=== PATIENT | female | born 1990 | race American Indian/Alaskan Native ===

== ENCOUNTER 2017-01-08 21:37 | Emergency (ER) | payer MEDICAID ==
--- NOTE | 2017-01-09 01:46 | Emergency Department Report ---
HPI - General Chief Complaint: Skin Rash Time Seen by Provider: 01/09/17 01:30 - HPI HPI: 26-year-old -[place] female comes in with complaint of a rash all over her body for 10-15 years. Patient reports that the rash is itchy. Patient is a poor historian ED Past Medical Hx - Past Medical History Previous Medical History?: No - Surgical History Past Surgical History?: No - Social History Smoking Status: Never Smoker Substance Use Type: None ED Review of Systems ROS: Stated complaint: RASH Other details as noted in HPI Constitutional: denies: chills, fever Eyes: denies: eye pain, eye discharge, vision change ENT: denies: ear pain, throat pain Respiratory: denies: cough, shortness of breath, wheezing Cardiovascular: denies: chest pain, palpitations Endocrine: no symptoms reported Gastrointestinal: denies: abdominal pain, nausea, diarrhea Genitourinary: denies: urgency, dysuria, discharge Musculoskeletal: denies: back pain, joint swelling, arthralgia Skin: rash, pruritus Neurological: denies: headache, weakness, paresthesias Psychiatric: denies: anxiety, depression Hematological/Lymphatic: denies: easy bleeding, easy bruising Physical Exam - Physical Exam Vital Signs: Vital Signs 01/08/17 22:30 Temperature 98.3 F Pulse Rate 86 Respiratory 14 Rate Blood Pressure 118/68 [Right] O2 Sat by Pulse 99 Oximetry Physical Exam: GENERAL: Alert and oriented x3, no apparent distress, Normal Gait, atraumatic. HEAD: Head is normocephalic and a-traumatic. EYES: Extra ocular muscles are intact. Pupils are equal, round, and reactive to light and accommodation. EXTREMITIES/MUSCULOSKELETAL: No cyanosis, clubbing, rash, lesions or edema. Full ROM bilaterally. UE/LE Pulses 2+ bilaterally. LE and UE 5+ strength bilaterally NEUROLOGIC: No focal Deficit, Cranial nerves II through XII are grossly intact. No loss of sensation, No facial droop, . PSYCHIATRIC: Mood is congruent with affect, flat affect SKIN: Warm and dry, No lesions, No ulceration or induration present hyperpigmented rash located on forehead, she has large pores somewhat craters openings on her face. Scaly dry rash on body ED Course Vital Signs 01/08/17 22:30 Temperature 98.3 F Pulse Rate 86 Respiratory 14 Rate Blood Pressure 118/68 [Right] O2 Sat by Pulse 99 Oximetry ED Medical Decision Making - Medical Decision Making Discussed with patient this is a chronic issue she's had for greater than 10 years. That this is most likely a referral for hydrogenation operator. Dressed with patient that her vitals are stable she is not actively having an acute rash. Discussed the patient we will refer her to a hydrogenation operator patient verbalized understanding Critical care attestation.: If time is entered above; I have spent that time in minutes in the direct care of this critically ill patient, excluding procedure time. ED Disposition Clinical Impression: Rash of entire body Disposition: DISCHARGED TO HOME OR SELFCARE Is pt being admited?: No Does the pt Need Aspirin: No Condition: Stable Additional Instructions: Very important for you to follow-up with a hydrogenation operator. Advised to to call customer service number on the back of your insurance car to find out who accepts her insurance as a hydrogenation operator. Give him a call to schedule an appointment for your chronic rash. Referrals: PRIMARY CARE, [Primary Care Provider] - 3-5 Days [facility] [Provider Group] - 3-5 Days
[2017-01-09 02:22] VITALS: BP 119/74
== END 2017-01-09 02:21 | disposition home or self-care (01) ==
LOC: ED 21:37
DX: R21 Rash and other nonspecific skin eruption (principal)
CPT/HCPCS: 99282

== ENCOUNTER 2017-01-16 15:25 | Emergency (ER) | payer MEDICAID ==
--- NOTE | 2017-01-16 20:47 | Emergency Department Report ---
Entered by RASHARD JACOBSEN, acting as scribe for ERICH DODD PA. - General Chief complaint: Skin/Abscess/Foreign Body Stated complaint: RASH/BOIL ON BACK Source: patient Mode of arrival: Ambulatory Limitations: No Limitations - History of Present Illness Initial comments: 26 y/o female presents c/o area of swelling that was drained 10 yrs ago. Pt notes that "knot" has not gotten any larger, however pt's mother notes it is getting larger. Secondary complaint includes rash that began 5-6 months ago diffusely. Pt denies itching, fever, chills, chest pain, SOB, fever, abd pain, N /V, numbness, weakness, SALES. Pt notes using OTC cream for the Sx with no relief. Pt states Hx of acne, request dermatology referral. No additional Sx MD complaint: abscess/boil -: month(s) (5-6 rash onset), year(s) (10 years, swelling right lower back drained) Location: back (right lower) Severity: mild Quality: constant Consistency: constant Improves with: none Worsens with: none Context: other (drained 4-5 years ago) Associated symptoms: other (rash on her body, denies itching) Treatments Prior to Arrival: OTC topical medication - Related Data Previous Rx's Medication Instructions Recorded Last Taken Type Salicylic Acid/Ceramide Cmb #1 1 applic TP BID #1 [email or web address] 01/16/17 Unknown Rx [Salicylic Acid 6% Cream Kit] Allergies Allergy/AdvReac Type Severity Reaction Status Date / Time No Known Allergies Allergy Verified 01/08/17 22:51 Abscess Boil HPI - HPI Chief Complaint: Skin/Abscess/Foreign Body Stated Complaint: RASH/BOIL ON BACK Home Medications: Previous Rx's Medication Instructions Recorded Last Taken Type Salicylic Acid/Ceramide Cmb #1 1 applic TP BID #1 [email or web address] 01/16/17 Unknown Rx [Salicylic Acid 6% Cream Kit] Allergies/Adverse Reactions: Allergies Allergy/AdvReac Type Severity Reaction Status Date / Time No Known Allergies Allergy Verified 01/08/17 22:51 ED Review of Systems Comment: All other systems reviewed and negative Constitutional: denies: chills, fever Respiratory: denies: cough, shortness of breath Cardiovascular: denies: chest pain Gastrointestinal: denies: abdominal pain, nausea, vomiting Musculoskeletal: other (right lower back swelling) Skin: rash (diffusely), other (denies itching) Neurological: denies: headache, weakness, numbness ED Past Medical Hx - Past Medical History Previous Medical History?: No - Surgical History Past Surgical History?: No - Social History Smoking Status: Never Smoker Substance Use Type: None - Medications Home Medications: Home Medications Medication Instructions Recorded Confirmed Last Taken Type Salicylic Acid/Ceramide Cmb #1 1 applic TP BID #1 [email or web address] 01/16/17 Unknown Rx [Salicylic Acid 6% Cream Kit] ED Physical Exam - General Limitations: No Limitations - Other Other exam information: GENERAL: Patient is alert and oriented x 3. No apparent distress, normal gait, atraumatic. HEAD: Head is normocephalic and atraumatic. EYES: Extraocular movements are intact. EARS: Symmetrical, atraumatic, non tender. NOSE: Nose symmetrical, nontender. Nares appeared normal. MOUTH:Mouth is well hydrated and without lesions. NECK: Supple. Non edematous, no carotid bruits. No lymphadenopathy or thyromegaly. LUNGS: Symmetrical with respiration. No wheezing, rales or crackles, CTAB. HEART: Regular rate and rhythm with normal S1/S2 present. No murmurs, rubs, or gallops. ABDOMEN: Soft, nondistended. Nontender to palpation on all quadrants. No organomegaly was noted. Positive bowel sounds. No CVA tenderness. EXTREMITIES/MUSCULOSKELETAL: No cyanosis, clubbing, rash, lesions or edema. Full ROM bilaterally. UE/LE Pulses 2+ bilaterally. LE and UE 5+ strength bilaterally SKIN: Warm and dry. No lesions, ulceration or induration present. Pt has small swelling in right lower back consistent with lipoma, area is non-tender, non- erythematous, no signs of infection, 3-4cm in diameter. Hyperpigmented areas diffusely, consistent with old healed acne scarring. NEUROLOGIC: No focal deficit. ED Course Vital Signs 01/16/17 16:40 Temperature 98.2 F Pulse Rate 79 Respiratory 20 Rate Blood Pressure 126/75 O2 Sat by Pulse 100 Oximetry ED Medical Decision Making - Medical Decision Making 26 y/o female presents c/o generalized body acne. Discussed with patient to follow up with PCP as referred, and to return to the ED if her symptoms return or worsen. Patient states understanding and will follow instructions. The patient will follow up with hardboard panel printer Vital signs stable, patient is in no acute distress. ED Disposition Clinical Impression: Acne Qualifiers: Acne type: acne vulgaris Qualified Code(s): L70.0 - Acne vulgaris Disposition: DISCHARGED TO HOME OR SELFCARE Is pt being admited?: No Does the pt Need Aspirin: No Condition: Stable Instructions: Antiacne Antibacterial (On the skin), Salicylic Acid (On the skin ) Prescriptions: Salicylic Acid/Ceramide Cmb #1 [Salicylic Acid 6% Cream Kit] 1 applic TP BID #1 [email or web address] Referrals: PRIMARY CAREMD [Primary Care Provider] - 3-5 Days MENDOZA SINGLETARY [Referring] - 3-5 Days JOSSELIN MANZO MD [Staff Physician] - 3-5 Days PATRICIA LOWE MD [Referring] - 3-5 Days TRENA BARRIENTOS MD [Referring] - 3-5 Days Forms: Work/School Release Form(ED) Time of Disposition: 20:38 This documentation as recorded by the ANN-MARIE gibbs RYAN,accurately reflects the service I personally performed and the decisions made by JU parada OYINLOLA A, PA.
[2017-01-16 22:38] VITALS: BP 124/68
== END 2017-01-16 21:00 | disposition home or self-care (01) ==
LOC: ED 15:25
DX: L70.0 Acne vulgaris (principal)
CPT/HCPCS: 99282

== ENCOUNTER 2017-04-12 15:03 | Emergency (ER) | payer MEDICAID ==
[2017-04-12] MEDS ORDERED: FUL-GLO OP ONE (17:50)
[2017-04-12] MEDS ORDERED: TETRACAINE 0.5% OU STA (17:50)
--- NOTE | 2017-04-12 18:00 | Emergency Department Report ---
ED Eye Problem HPI - General Chief complaint: Eye Problems Stated complaint: RT EYE INFECTION Time Seen by Provider: 04/12/17 17:45 Source: patient Mode of arrival: Ambulatory Limitations: No Limitations - History of Present Illness Initial comments: PT states she thinks she has pink eye in her R eye. PT reports R eye drainage and redness x 2 days. PT states last night her eye hurt. PT does not wear contact lenses. pt denies exposure to anyone with pink eye. pt denies eye injury MD chief complaint: eye redness Onset/Timin -: Gradual, days(s) Onset Description: gradual Location: right eye Place: home If Injury: none Eye Symptoms: redness, pain (last night ), discharge Severity: mild Consistency: constant (erythema), now resolved (pain has been resolved ) Associated Symptoms: none Treatments Prior to Arrival: OTC eye drops - Related Data Previous Rx's Medication Instructions Recorded Last Taken Type Salicylic Acid/Ceramide Cmb #1 1 applic TP BID #1 [email or web address] 01/16/17 Unknown Rx [Salicylic Acid 6% Cream Kit] Tobramycin 0.3% [Tobrex] 1 drop OD QID 7 Days 04/12/17 Unknown Rx Allergies Allergy/AdvReac Type Severity Reaction Status Date / Time No Known Allergies Allergy Verified 01/08/17 22:51 ED Review of Systems ROS: Stated complaint: RT EYE INFECTION Other details as noted in HPI Comment: All other systems reviewed and negative Constitutional: denies: fever Eyes: as per HPI, eye discharge (pt's mother reports anup eye drainage. pt states only 1 eye draining ) ENT: denies: congestion Respiratory: denies: cough Gastrointestinal: denies: abdominal pain Skin: denies: rash, change in color ED Past Medical Hx - Surgical History Past Surgical History?: No - Social History Smoking Status: Never Smoker Substance Use Type: None - Medications Home Medications: Home Medications Medication Instructions Recorded Confirmed Last Taken Type Salicylic Acid/Ceramide Cmb #1 1 applic TP BID #1 [email or web address] 01/16/17 Unknown Rx [Salicylic Acid 6% Cream Kit] Tobramycin 0.3% [Tobrex] 1 drop OD QID 7 Days 04/12/17 Unknown Rx ED Physical Exam - General Limitations: No Limitations General appearance: alert, in no apparent distress - Head Head exam: Present: atraumatic, normocephalic, normal inspection - Eye Eye exam: Present: PERRL, EOMI, conjunctival injection (mild erythema to the lateral R eye ), other (vision grossly intact by finger counting ). Absent: nystagmus, periorbital swelling, periorbital tenderness Pupils: Present: normal accommodation - Expanded Eye Exam Expanded Eyelids: Normal Inspection: Right Pupils: Regular, Round: Bilateral Sclera/Conjunctival: Injection: Right (no fb or abrasion seen on wood's lamp exam ) - ENT ENT exam: Present: normal exam, normal external ear exam - Neck Neck exam: Present: normal inspection, full ROM - Respiratory Respiratory exam: Present: normal lung sounds bilaterally. Absent: respiratory distress - Cardiovascular Cardiovascular Exam: Present: regular rate, normal rhythm - GI/Abdominal GI/Abdominal exam: Present: soft. Absent: tenderness - Extremities Exam Extremities exam: Present: normal inspection, full ROM - Back Exam Back exam: Present: normal inspection, full ROM - Neurological Exam Neurological exam: Present: alert, oriented X3, normal gait - Psychiatric Psychiatric exam: Present: normal affect, normal mood - Skin Skin exam: Present: warm, dry, intact, normal color ED Course Vital Signs 04/12/17 04/12/17 16:02 18:28 Temperature 98.1 F Pulse Rate 84 84 Respiratory 18 16 Rate Blood Pressure 110/46 Blood Pressure 119/69 [Left] O2 Sat by Pulse 99 99 Oximetry - Reevaluation(s) Reevaluation #1: 04/12/17 18:07 pt and pt's mother aware of dx and plan of care. no questions at this time - Pulse Oximetry Interpretation Digit-Finger Initial Pulse Oximetry Readin Actions Taken: none ED Medical Decision Making - Differential Diagnosis corneal abrasion, fb, conjunctivitis Critical Care Time: No Critical care attestation.: If time is entered above; I have spent that time in minutes in the direct care of this critically ill patient, excluding procedure time. ED Disposition Clinical Impression: Conjunctivitis Qualifiers: Conjunctivitis type: acute Acute conjunctivitis type: unspecified Laterality: right Qualified Code(s): H10.31 - Unspecified acute conjunctivitis, right eye Disposition: DC-01 TO HOME OR SELFCARE Is pt being admited?: No Does the pt Need Aspirin: No Condition: Stable Instructions: Conjunctivitis (ED), How to Use Eye Drops (ED) Additional Instructions: follow up with PCP in 3-5 days Follow up with an eye doctor in 3-5 days Good hand washing before and after placing eye drops into R eye Return to ED if worsening or concerns Prescriptions: Tobramycin 0.3% [Tobrex] 1 drop OD QID 7 Days Referrals: PRIMARY CARE, [Primary Care Provider] - 3-5 Days THANG WILKINSON MD [Staff Physician] - 3-5 Days RASHARD HOPPER DO [Staff Physician] - 3-5 Days [facility] [Outside] - 3-5 Days Time of Disposition: 18:12
[2017-04-12 18:29] VITALS: BP 119/69
== END 2017-04-12 18:29 | disposition home or self-care (01) ==
LOC: ED 15:03
DX: H10.31 Unspecified acute conjunctivitis, right eye (principal)
CPT/HCPCS: 99283

== ENCOUNTER 2018-04-20 03:41 | Emergency (ER) | payer MEDICAID ==
[2018-04-20] MEDS ORDERED: KEPPRA 1,000 MG/NS 0.75% 100ML 1,000 MG/100 ML BAG IV ONE (04:36)
[2018-04-20] MEDS ORDERED: VITAMIN B-1 100 MG, FOLVITE 1 MG, INFUVITE 10 ML in NACL 0.9% 1000 ML 1,000 ML IV ONE (04:37)
[2018-04-20 04:52] LABS: Basophils # (Auto) 0.1 K/mm3 (0.0-0.1); Basophils % (Auto) 0.8 % (0.0-1.8); Eosinophils # (Auto) 0.2 K/mm3 (0.0-0.4); Eosinophils % (Auto) 2.7 % (0.0-4.3); Hematocrit 30.2 % (30.3-42.9); Hemoglobin 9.1 gm/dl (10.1-14.3); Lymphocytes # (Auto) 1.2 K/mm3 (1.2-5.4); Lymphocytes % (Auto) 13.7 % (13.4-35.0); Mean Corpuscular HGB Conc 30 % (30-34); Monocytes # (Auto) 0.6 K/mm3 (0.0-0.8); Platelet Count 287 K/mm3 (140-440); Red Blood Count 4.76 M/mm3 (3.65-5.03); Red Cell Distribution Width 19.6 % (13.2-15.2)
[2018-04-20] MEDS ORDERED: NACL 0.9% 1000 ML 1,000 ML ONE (04:54)
[2018-04-20 04:58] LABS: Mean Corpuscular Hemoglobin 19 pg (28-32); Mean Corpuscular Volume 64 fl (79-97)
[2018-04-20] MEDS ORDERED: NACL 0.9% 1000 ML 1,000 ML IV ONE ×2 (05:00→05:01)
[2018-04-20 05:23] LABS: BUN/Creatinine Ratio 11; Blood Urea Nitrogen 10 mg/dL (7-17); Calcium 8.6 mg/dL (8.4-10.2); Hemolysis Index 0
--- NOTE | 2018-04-20 05:35 | Emergency Department Report ---
HPI - General Chief Complaint: Seizure Time Seen by Provider: 04/20/18 04:35 - HPI HPI: Patient is 27-year-old female with a history of seizures, presents for evaluation of recurring seizure like activity. The patient is accompanied by her mother whom reports that the patient expressed a seizure possible one hour prior to arrival, prompting EMS call. He states that the seizure was severe, constant for 10-15 seconds, self resolving. The patient only complains of mild tiredness since awakening from her seizure. The patient denies fever, head injury, headache, neck pain, neck stiffness, chest pain, dyspnea, abdominal pain , back pain, vision or hearing changes, smell or taste changes, paresthesias, facial drooping, slurred speech, urine or bowel incontinence or retention, or other focal neurological deficit. ED Past Medical Hx - Past Medical History Previous Medical History?: Yes Hx Seizures: Yes - Surgical History Past Surgical History?: Yes Additional Surgical History: back - Social History Smoking Status: Never Smoker - Medications Home Medications: Home Medications Medication Instructions Recorded Confirmed Last Taken Type Salicylic Acid/Ceramide Comb 1 1 applic TP BID #1 [email or web address] 01/16/17 Unknown Rx [Salicylic Acid 6% Cream Kit] Tobramycin 0.3% [Tobrex] 1 drop OD QID 7 Days bottle 04/12/17 Unknown Rx levETIRAcetam [Keppra TAB] 500 mg PO BID #30 tablet 04/20/18 Unknown Rx ED Review of Systems ROS: Stated complaint: SEIZURE Other details as noted in HPI Constitutional: denies: fever ENT: denies: throat or neck pain Respiratory: denies: cough, shortness of breath Cardiovascular: denies: chest pain Endocrine: denies unexplained weight loss or gain Gastrointestinal: denies: abdominal pain, nausea Genitourinary: denies: dysuria Musculoskeletal: denies: leg swelling Skin: denies: rash Neurological: reports seizure denies: headache Hematological/Lymphatic: denies: easy bleeding or easy bruising Psych: denies sadness or hopelessness Physical Exam - Physical Exam Vital Signs: Vital Signs 04/20/18 04/20/18 04/20/18 04:16 04:18 04:30 Temperature 98.4 F Pulse Rate 113 H 113 H Respiratory 24 25 H Rate Blood Pressure 106/53 Physical Exam: General: well-nourished, well-developed, no acute distress Head: Normocephalic, atraumatic Eyes: normal sclera, PERRL, EOM intact ENT: Mucous membranes are pale and dry Neck: No neck stiffness, no cervical adenopathy Respiratory: Breath sounds equal bilaterally, no wheezing, rales, or rhonchi Cardio: S1 and S2 present, no murmurs, rubs, gallops, capillary refill is delayed Abdomen: Normoactive bowel sounds, soft abdomen, no rigidity, no guarding or rebound tenderness Musc: No pitting edema Skin: No rash Neuro: alert oriented x4, normal cognition, speech normal, no facial drooping, no uvula or tongue deviation on protrusion, no deficit with rotation of neck or shoulder shrug, no obvious gross motor deficit in the upper or lower extremities with flexion or extension at the shoulder, elbow, wrist, hip, knee, or ankle bilaterally, no obvious gross sensation deficit to crude touch or 2 pt discrimination, 2+ symmetric reflexes on DTR testing, no coordination deficit with [id number] or [id number] testing, [place] down-going ED Course Vital Signs 04/20/18 04/20/18 04/20/18 04:16 04:18 04:30 Temperature 98.4 F Pulse Rate 113 H 113 H Respiratory 24 25 H Rate Blood Pressure 106/53 ED Medical Decision Making - Lab Data Result diagrams: 04/20/18 04:40 04/20/18 04:40 - Medical Decision Making The patient was seen and examined by myself. The patient is placed on a vehicle monitor technician and continuous pulse ox. On initial evaluation, the patient was found to be in no distress. Evaluation orders were placed. The patient given IV For treatment of her seizure. The patient is given normal saline fluid bolus for treatment of her dehydration. There was also grossly unrevealing, including normal CK level and negative Preg test. The patient was reevaluated and reported that their symptoms were markedly improved. The patient is stable for discharge with outpatient follow-up. The patient is given follow-up and return instructions. The patient expressed understanding and agreed with the plan. The patient is discharged in stable condition. Critical care attestation.: If time is entered above; I have spent that time in minutes in the direct care of this critically ill patient, excluding procedure time. ED Disposition Clinical Impression: Dehydration, Seizure disorder Disposition: DC-01 TO HOME OR SELFCARE Is pt being admited?: No Does the pt Need Aspirin: No Condition: Stable Instructions: Epilepsy (ED) Additional Instructions: Do not drive or operate a vehicle or heavy machinery until seizure free for one year and cleared by a neurologist to do so. Prescriptions: levETIRAcetam [Keppra TAB] 500 mg PO BID #30 tablet Referrals: [facility] [Outside] - 3-5 Days NOBLE CAO MD [Staff Physician] - 3-5 Days Time of Disposition: 05:36
[2018-04-20 06:19] VITALS: BP 109/66
== END 2018-04-20 06:59 | disposition home or self-care (01) ==
LOC: ED 03:41
DX: G40.909 Epilepsy, unspecified, not intractable, without status epilepticus (principal); E86.0 Dehydration
CPT/HCPCS: 36415; 80048; 82550; 84703; 85025; 93005; 93010; 96365; 96366; 96375; 99284; J1953; J3411; J7030

== ENCOUNTER 2018-05-23 13:35 | Emergency (ER) | payer MEDICAID ==
[2018-05-23 14:00] VITALS: BP 119/52
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
== END 2018-05-23 17:18 | disposition home or self-care (01) ==
LOC: ED 13:35
DX: J30.9 Allergic rhinitis, unspecified (principal); Z77.120 Contact with and (suspected) exposure to mold (toxic)
CPT/HCPCS: 99282

== ENCOUNTER 2018-11-02 12:57 | Emergency (ER) | payer MEDICAID ==
[2018-11-02] MEDS ORDERED: NACL 0.9% 1000 ML 1,000 ML IV ONE (14:02)
[2018-11-02] MEDS ORDERED: ZOFRAN IV ONE (14:02)
--- NOTE | 2018-11-02 14:04 | Emergency Department Report ---
ED N/V/D HPI - General Chief complaint: Nausea/Vomiting/Diarrhea Stated complaint: UPSET STOMACH Time Seen by Provider: 11/02/18 14:02 Source: patient Mode of arrival: Ambulatory Limitations: No Limitations - History of Present Illness Initial comments: This is a 28-year-old female nontoxic, well nourished in appearance, no acute signs of distress presents to the ED with c/o of nausea and vomiting 1 day. Patient describes vomiting as food content. Patient denies any abdominal pain, chest pain, short of breath, fever, chills, headache, stiff neck, numbness or tingling. Patient denies any diarrhea or constipation. Patient denies any recent travels. Patient denies any drug allergies significant past medical history. MD complaint: nausea, vomiting -: Last night Associated Abdominal Pain: No Radiation: none Pain Scale: 0 Improves with: none Worsens with: none Associated Symptoms: nausea/vomiting. denies: myalgias, chest pain, cough, diaphoresis, fever/chills, headaches, loss of appetite, malaise, rash, dysuria, shortness of breath, syncope, weakness - Related Data Previous Rx's Medication Instructions Recorded Last Taken Type Salicylic Acid/Ceramide Comb 1 1 applic TP BID #1 kit.clcmer 01/16/17 Unknown Rx [Salicylic Acid 6% Cream Kit] Tobramycin 0.3% [Tobrex] 1 drop OD QID 7 Days bottle 04/12/17 Unknown Rx Cetirizine HCl [ZyrTEC] 10 mg PO QDAY 21 Days #21 05/23/18 Unknown Rx tab.rapdis Fluticasone [Flonase] 1 spray NS QDAY 14 Days #1 bottle 05/23/18 Unknown Rx levETIRAcetam [Keppra TAB] 500 mg PO BID #30 tablet 05/23/18 Unknown Rx Acetaminophen/Codeine [Tylenol 1 tab PO Q6H PRN #12 tab 08/10/18 Unknown Rx /Codeine # 3 tab] Sulfamethoxazole/Trimethoprim 1 each PO BID #14 tablet 08/10/18 Unknown Rx [Bactrim DS TAB] levETIRAcetam [Keppra TAB] 500 mg PO BID #60 tablet 08/10/18 Unknown Rx Ondansetron [Zofran Odt] 4 mg PO Q8HR PRN #20 tab.rapdis 11/02/18 Unknown Rx Allergies Allergy/AdvReac Type Severity Reaction Status Date / Time No Known Allergies Allergy Verified 11/02/18 15:23 ED Review of Systems ROS: Stated complaint: UPSET STOMACH Other details as noted in HPI Constitutional: denies: chills, fever Eyes: denies: eye pain, eye discharge, vision change ENT: denies: ear pain, throat pain Respiratory: denies: cough, shortness of breath, wheezing Cardiovascular: denies: chest pain, palpitations Endocrine: no symptoms reported Gastrointestinal: nausea, vomiting. denies: abdominal pain, diarrhea Genitourinary: denies: urgency, dysuria, discharge Musculoskeletal: denies: back pain, joint swelling, arthralgia Skin: denies: rash, lesions Neurological: denies: headache, weakness, paresthesias Psychiatric: denies: anxiety, depression Hematological/Lymphatic: denies: easy bleeding, easy bruising ED Past Medical Hx - Past Medical History Previous Medical History?: No Hx Seizures: Yes - Surgical History Additional Surgical History: back - Social History Smoking Status: Never Smoker Substance Use Type: None - Medications Home Medications: Home Medications Medication Instructions Recorded Confirmed Last Taken Type Salicylic Acid/Ceramide Comb 1 1 applic TP BID #1 kit.clcmer 01/16/17 Unknown Rx [Salicylic Acid 6% Cream Kit] Tobramycin 0.3% [Tobrex] 1 drop OD QID 7 Days bottle 04/12/17 Unknown Rx Cetirizine HCl [ZyrTEC] 10 mg PO QDAY 21 Days #21 05/23/18 Unknown Rx tab.rapdis Fluticasone [Flonase] 1 spray NS QDAY 14 Days #1 bottle 05/23/18 Unknown Rx levETIRAcetam [Keppra TAB] 500 mg PO BID #30 tablet 05/23/18 Unknown Rx Acetaminophen/Codeine [Tylenol 1 tab PO Q6H PRN #12 tab 08/10/18 Unknown Rx /Codeine # 3 tab] Sulfamethoxazole/Trimethoprim 1 each PO BID #14 tablet 08/10/18 Unknown Rx [Bactrim DS TAB] levETIRAcetam [Keppra TAB] 500 mg PO BID #60 tablet 08/10/18 Unknown Rx Ondansetron [Zofran Odt] 4 mg PO Q8HR PRN #20 tab.rapdis 11/02/18 Unknown Rx ED Physical Exam - General Limitations: No Limitations General appearance: alert, in no apparent distress - Head Head exam: Present: atraumatic, normocephalic - Eye Eye exam: Present: normal appearance - Neck Neck exam: Present: normal inspection, full ROM - Respiratory Respiratory exam: Present: normal lung sounds bilaterally. Absent: respiratory distress, wheezes, rales, rhonchi, stridor, chest wall tenderness, accessory muscle use, decreased breath sounds, prolonged expiratory - Cardiovascular Cardiovascular Exam: Present: regular rate, normal rhythm, tachycardia, normal heart sounds. Absent: irregular rhythm, systolic murmur, diastolic murmur, rubs, gallop - GI/Abdominal GI/Abdominal exam: Present: soft, normal bowel sounds. Absent: distended, tenderness, guarding, rebound, rigid, diminished bowel sounds - Expanded GI/Abdominal Exam Expanded GI/Abdominal exam: Absent: psoas sign, Freitas's sign, Rovsing's sign, tenderness at Mcburney's Point, ascites - Extremities Exam Extremities exam: Present: normal inspection, full ROM - Back Exam Back exam: Present: normal inspection, full ROM - Neurological Exam Neurological exam: Present: alert, oriented X3 - Psychiatric Psychiatric exam: Present: normal affect, normal mood - Skin Skin exam: Present: warm, dry, intact, normal color. Absent: rash ED Course Vital Signs 11/02/18 13:06 Temperature 98.8 F Pulse Rate 112 H Respiratory 18 Rate Blood Pressure 117/75 O2 Sat by Pulse 100 Oximetry - Reevaluation(s) Reevaluation #1: 11/02/18 14:48 Patient is speaking in full sentences with no signs of distress noted. ED Medical Decision Making - Lab Data Result diagrams: 11/02/18 14:28 11/02/18 14:28 - Medical Decision Making This is a 28-year-old female that presents with nausea and vomiting. Patient is stable and was examined by me. There is no abdominal tenderness. Negative signs of symptoms of appendicitis. Labs obtained. UA obtained. XR abdomen xray obtained and dictated by the radiologist. Patient is notified of the report with no questions noted by the patient. Vital signs are stable prior to discharge. Patient received Zofran and 1L Normal saline in the ED which patient stated symptoms has resolved and subsided. A by mouth challenge has been obtained and patient tolerated well with no nausea vomiting. Patient was notified of strict precautions of appendicitis symptoms and to return to the ED if symptoms occurs as soon as possible. Patient was also instructed to Follow-up with a primary care doctor in 3-5 days or if symptoms worsen and continue return to emergency room as soon as possible. At time of discharge, the patient does not seem toxic or ill in appearance. No acute signs of distress noted. Patient agrees to discharge treatment plan of care. No further questions noted by the patient. Critical care attestation.: If time is entered above; I have spent that time in minutes in the direct care of this critically ill patient, excluding procedure time. ED Disposition Clinical Impression: Nausea & vomiting Qualifiers: Vomiting type: unspecified Vomiting Intractability: non-intractable Qualified Code(s): R11.2 - Nausea with vomiting, unspecified Disposition: DC-01 TO HOME OR SELFCARE Is pt being admited?: No Does the pt Need Aspirin: No Condition: Stable Instructions: Acute Nausea and Vomiting (ED) Additional Instructions: Follow-up with a primary care doctor in 3-5 days or if symptoms worsen and continue return to emergency room as soon as possible. Prescriptions: Ondansetron [Zofran Odt] 4 mg PO Q8HR PRN #20 tab.rapdis PRN Reason: Nausea Referrals: PRIMARY CAREMD [Referring] - 3-5 Days NOBLE GUADARRAMA MD [Staff Physician] - 3-5 Days [facility] [Outside] - 3-5 Days Forms: Work/School Release Form(ED)
[2018-11-02 14:43] LABS: Basophils % (Auto) 0.6 % (0.0-1.8); Eosinophils % (Auto) 0.1 % (0.0-4.3); Lymphocytes # (Auto) 0.9 K/mm3 (1.2-5.4); Mean Corpuscular HGB Conc 30 % (30-34); Monocytes # (Auto) 0.6 K/mm3 (0.0-0.8); Monocytes % (Auto) 10.4 % (0.0-7.3); Platelet Count 374 K/mm3 (140-440); Red Blood Count 4.89 M/mm3 (3.65-5.03); Red Cell Distribution Width 19.3 % (13.2-15.2)
[2018-11-02 14:46] LABS: Hemoglobin 9.2 gm/dl (10.1-14.3); Mean Corpuscular Volume 63 fl (79-97)
[2018-11-02 15:22] LABS: Alanine Aminotransferase 17 units/L (7-56); Albumin 4.5 g/dL (3.9-5); BUN/Creatinine Ratio 13; Blood Urea Nitrogen 9 mg/dL (7-17); Hemolysis Index 3
[2018-11-02] MEDS ORDERED: K-DUR PO ONE (15:22)
[2018-11-02 15:41] LABS: Bilirubin,Direct < 0.2 mg/dL (0-0.2)
--- NOTE | 2018-11-02 15:50 | XRay Report ---
FINAL REPORT EXAM: XR ABDOMEN 2V HISTORY: nausea vomiting TECHNIQUE: Single view of the abdomen. PRIORS: None currently available. FINDINGS: Bowel gas appearance is nonspecific and non-distended. There is no pneumoperitoneum. There is no air fluid level. There is no obstructive pattern. Mild stool is present. There are no suspicious calcifications overlying the renal shadows. IMPRESSION: Nonspecific nonobstructive bowel gas pattern.
[2018-11-02 16:27] VITALS: BP 114/65
[2018-11-02 16:51] LABS: Bacteria,Urine 1+ /HPF (Negative); Bilirubin,Urine NEG (Negative); Blood,Urine MOD (Negative); Color,Urine Yellow (Yellow); Hyaline Casts,Urine 2 /LPF; Mucus,Urine 3+ /HPF; Urobilinogen,Urine < 2.0 mg/dL (<2.0)
== END 2018-11-02 16:33 | disposition home or self-care (01) ==
LOC: ED 12:57
DX: R11.2 Nausea with vomiting, unspecified (principal)
CPT/HCPCS: 36415; 74019; 80048; 80076; 81001; 83690; 84703; 85025; 96361; 96374; 99284; J2405; J7030

== ENCOUNTER 2019-01-01 13:17 | Emergency (ER) | payer MEDICAID, OTHER ==
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
[2019-01-01] MEDS ORDERED: MOTRIN PO ONE (14:58)
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
[2019-01-01 16:01] VITALS: BP 132/78
== END 2019-01-01 15:57 | disposition home or self-care (01) ==
LOC: ED 13:17
DX: M79.18 Myalgia, other site (principal)
CPT/HCPCS: 99282

== ENCOUNTER 2019-07-17 20:35 | Emergency (ER) | payer MEDICAID, OTHER ==
[2019-07-17 21:10] VITALS: BP 110/58
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
== END 2019-07-17 22:36 | disposition left against medical advice (07) ==
LOC: ED 20:35
DX: M54.2 Cervicalgia (principal); R51 Headache; M54.9 Dorsalgia, unspecified; Z53.21 Procedure and treatment not carried out due to patient leaving prior to being seen by health care provider

== ENCOUNTER 2019-07-18 13:37 | Emergency (ER) | payer MEDICAID ==
--- NOTE | 2019-07-18 14:03 | Event Note ---
ED Screening Note Date of service: 07/18/19 Time: 14:00 ED Screening Note: This is a 29 y.o. F. that presents to the ER with a global headache since yesterday. She also reports muscle spasms to back which is chronic. Taking Tylenol without relief. Reports a history of headaches. This initial assessment/diagnostic orders/clinical plan/treatment(s) is/are subject to change based on patients health status, clinical progression and re- assessment by fellow clinical providers in the ED. Further treatment and workup at subsequent clinical providers discretion. Patient/guardian urged not to elope from the ED as their condition may be serious if not clinically assessed and managed. Initial orders include:
[2019-07-18] MEDS ORDERED: IBUPROFEN PO ONE (15:58)
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
[2019-07-18 16:52] VITALS: BP 132/52
== END 2019-07-18 16:50 | disposition home or self-care (01) ==
LOC: ED 13:37
DX: G44.209 Tension-type headache, unspecified, not intractable (principal)
CPT/HCPCS: 99282

== ENCOUNTER 2021-08-17 23:56 | Emergency (ER) | payer MEDICAID ==
[2021-08-18] MEDS ORDERED: levETIRAcetam 1000 MG/NS 0.75% 1,000 MG/100 ML BAG IV ONE (00:25)
[2021-08-18] MEDS ORDERED: BUTALB/ACETAMINOPHEN/CAFFEINE TAB PO ONE (00:31)
[2021-08-18] MEDS ORDERED: SODIUM CHLORIDE 0.9% 1000 ML 1,000 ML IV ONE (00:35)
--- NOTE | 2021-08-18 00:36 | Emergency Department Report ---
HPI - General Chief Complaint: Seizure Time Seen by Provider: 08/18/21 00:24 - HPI HPI: Room 4 The patient is a 31-year-old female present with a chief complaint of seizure. Patient has a history of seizures and is reportedly compliant with her Keppra. Patient has a history of autism mother states the patient began shaking and vomited and had an episode where she was not responsive. The mother is uncertain how long the episode lasted. EMS was called and when they arrived on scene the patient was sleeping patient is now awake and states she feels all right but just complains of a slight headache. ED Past Medical Hx - Past Medical History Previous Medical History?: Yes Hx Seizures: Yes Additional medical history: Autism - Surgical History Past Surgical History?: Yes Additional Surgical History: back - Family History Family history: no significant - Social History Smoking Status: Never Smoker Substance Use Type: None (Denies illicit drug use) - Medications Home Medications: Home Medications Medication Instructions Recorded Confirmed Last Taken Type Salicylic Acid/Ceramide Comb 1 1 applic TP BID #1 kit.clcmer 01/16/17 Unknown Rx [Salicylic Acid 6% Cream Kit] Tobramycin 0.3% [Tobrex] 1 drop OD QID 7 Days bottle 04/12/17 Unknown Rx Cetirizine HCl [ZyrTEC] 10 mg PO QDAY 21 Days #21 05/23/18 Unknown Rx tab.rapdis Fluticasone [Flonase] 1 spray NS QDAY 14 Days #1 bottle 05/23/18 Unknown Rx levETIRAcetam [Keppra TAB] 500 mg PO BID #30 tablet 05/23/18 Unknown Rx Acetaminophen/Codeine [Tylenol 1 tab PO Q6H PRN #12 tab 08/10/18 Unknown Rx /Codeine # 3 tab] Sulfamethoxazole/Trimethoprim 1 each PO BID #14 tablet 08/10/18 Unknown Rx [Bactrim DS TAB] Ondansetron [Zofran Odt] 4 mg PO Q8HR PRN #20 tab.rapdis 11/02/18 Unknown Rx Ibuprofen [Motrin] 600 mg PO Q8H PRN #30 tablet 01/01/19 Unknown Rx Ketorolac [Toradol] 10 mg PO Q6H PRN #15 tablet 01/23/19 Unknown Rx methOCARBAMOL [Robaxin TAB] 750 mg PO Q8H PRN #14 tablet 01/23/19 Unknown Rx Ibuprofen [Motrin 800 MG tab] 800 mg PO Q8HR PRN #15 tablet 07/18/19 Unknown Rx levETIRAcetam [Keppra TAB] 500 mg PO BID #60 tablet 08/18/21 Unknown Rx levoFLOXacin [Levaquin TAB] 500 mg PO QDAY #7 tablet 08/18/21 Unknown Rx ED Review of Systems ROS: Stated complaint: SEIZURES Other details as noted in HPI Constitutional: no symptoms reported Eyes: denies: eye pain ENT: denies: throat pain Respiratory: no symptoms reported Cardiovascular: denies: chest pain Endocrine: no symptoms reported Gastrointestinal: denies: abdominal pain Genitourinary: denies: dysuria Musculoskeletal: denies: back pain Neurological: headache Physical Exam - Physical Exam Vital Signs: Vital Signs 08/18/21 00:06 Temperature 98.4 F Pulse Rate 112 H Respiratory 16 Rate Blood Pressure 127/70 [Left] O2 Sat by Pulse 100 Oximetry Physical Exam: GENERAL: The patient is well-developed well-nourished female lying on stretcher not appearing to be in acute distress. [] HEENT: Normocephalic. Atraumatic. Extraocular motions are intact. Patient has moist mucous membranes. NECK: Supple. Trachea midline CHEST/LUNGS: Clear to auscultation. There is no respiratory distress noted. HEART/CARDIOVASCULAR: Regular. There is no tachycardia. There is no gallop rub or murmur. ABDOMEN: Abdomen is soft, nontender. Patient has normal bowel sounds. There is no abdominal distention. SKIN: There is no rash. There is no edema. There is no diaphoresis. NEURO: The patient is awake, alert, and oriented. The patient is cooperative. The patient has no focal neurologic deficits. The patient has normal speech. Cranial nerves II through XII grossly intact MUSCULOSKELETAL:There is no evidence of acute injury. ED Course Vital Signs 08/18/21 00:06 Temperature 98.4 F Pulse Rate 112 H Respiratory 16 Rate Blood Pressure 127/70 [Left] O2 Sat by Pulse 100 Oximetry ED Medical Decision Making - Lab Data Result diagrams: 08/18/21 00:40 08/18/21 00:40 Laboratory Tests 08/18/21 08/18/21 08/18/21 00:40 00:40 00:40 WBC 5.6 RBC 4.35 Hgb 8.0 L Hct 26.5 L MCV 61 L MCH 18 L MCHC 30 RDW 19.1 H Plt Count 303 Lymph % (Auto) 12.4 L Ramsey % (Auto) 6.7 Eos % (Auto) 1.0 Baso % (Auto) 0.5 Lymph # (Auto) 0.7 L Ramsey # (Auto) 0.4 Eos # (Auto) 0.1 Baso # (Auto) 0.0 Seg Neutrophils % 79.4 H Seg Neutrophils # 4.5 Sodium 138 Potassium 3.9 Chloride 104.0 Carbon Dioxide 20 L Anion Gap 18 BUN 7 Creatinine 0.7 Estimated GFR > 60 BUN/Creatinine Ratio 10 Glucose 101 H Calcium 9.2 Magnesium 2.10 HCG, Qual Negative Urine Color Urine Turbidity Urine pH Ur Specific [place] Urine Protein Urine Glucose (UA) Urine Ketones Urine Blood Urine Nitrite Urine Bilirubin Urine Urobilinogen Ur Leukocyte Esterase Urine WBC (Auto) Urine RBC (Auto) U Epithel Cells (Auto) Urine Mucus 08/18/21 01:23 WBC RBC Hgb Hct MCV MCH MCHC RDW Plt Count Lymph % (Auto) Ramsey % (Auto) Eos % (Auto) Baso % (Auto) Lymph # (Auto) Ramsey # (Auto) Eos # (Auto) Baso # (Auto) Seg Neutrophils % Seg Neutrophils # Sodium Potassium Chloride Carbon Dioxide Anion Gap BUN Creatinine Estimated GFR BUN/Creatinine Ratio Glucose Calcium Magnesium HCG, Qual Urine Color Yellow Urine Turbidity Hazy Urine pH 5.0 Ur Specific [place] 1.017 Urine Protein 30 mg/dl Urine Glucose (UA) Neg Urine Ketones 20 Urine Blood Neg Urine Nitrite Neg Urine Bilirubin Neg Urine Urobilinogen < 2.0 Ur Leukocyte Esterase Lg Urine WBC (Auto) 40.0 H Urine RBC (Auto) 3.0 U Epithel Cells (Auto) 5.0 Urine Mucus Few - Differential Diagnosis Seizure Critical care attestation.: If time is entered above; I have spent that time in minutes in the direct care of this critically ill patient, excluding procedure time. ED Disposition Clinical Impression: Seizure, UTI (urinary tract infection) Disposition: HOME / SELF CARE / HOMELESS Is pt being admited?: No Does the pt Need Aspirin: No Condition: Stable Instructions: Epilepsy, [id number], Urinary Tract Infection, Adult, [id number] Additional Instructions: Return to the emergency department should you develop worsening symptoms, inability to tolerate food or liquids, high fever or any other concerns Prescriptions: levETIRAcetam [Keppra TAB] 500 mg PO BID #60 tablet levoFLOXacin [Levaquin TAB] 500 mg PO QDAY #7 tablet Referrals: ERIBERTO MALDONADO MD [Staff Physician] - 3-5 Days (Dr. Maldonado is a neurologist. Please follow-up with him or your own neurologist for further evaluation) Time of Disposition: 02:04
[2021-08-18 01:06] LABS: Basophils % (Auto) 0.5 % (0.0-1.8); Eosinophils # (Auto) 0.1 K/mm3 (0.0-0.4); Hematocrit 26.5 % (30.3-42.9); Lymphocytes # (Auto) 0.7 K/mm3 (1.2-5.4); Lymphocytes % (Auto) 12.4 % (13.4-35.0); Mean Corpuscular HGB Conc 30 % (30-34); Monocytes # (Auto) 0.4 K/mm3 (0.0-0.8); Monocytes % (Auto) 6.7 % (0.0-7.3); Platelet Count 303 K/mm3 (140-440); Red Blood Count 4.35 M/mm3 (3.65-5.03); Red Cell Distribution Width 19.1 % (13.2-15.2)
[2021-08-18 01:14] LABS: Mean Corpuscular Volume 61 fl (79-97)
[2021-08-18 01:26] LABS: BUN/Creatinine Ratio 10; Blood Urea Nitrogen 7 mg/dL (7-17); Calcium 9.2 mg/dL (8.4-10.2); Hemolysis Index 4
[2021-08-18 01:47] LABS: Bilirubin,Urine NEG (Negative); Blood,Urine NEG (Negative); Color,Urine Yellow (Yellow); Mucus,Urine FEW /HPF; Urobilinogen,Urine < 2.0 mg/dL (<2.0)
[2021-08-18 02:24] VITALS: BP 120/66
== END 2021-08-18 02:31 | disposition home or self-care (01) ==
LOC: ED 23:56
DX: R56.9 Unspecified convulsions (principal); N39.0 Urinary tract infection, site not specified; Z98.890 Other specified postprocedural states; Z79.899 Other long term (current) drug therapy
CPT/HCPCS: 36415; 80048; 81001; 83735; 84703; 85025; 87086; 96365; 99284; J1953; J7030; 96374; Q0162

== ENCOUNTER 2021-08-20 13:16 | Emergency (ER) | payer MEDICAID ==
--- NOTE | 2021-08-20 13:51 | Emergency Department Report ---
ED Seizure HPI - General Chief Complaint: Seizure Stated Complaint: SZ Time Seen by Provider: 08/20/21 13:38 Source: EMS Mode of arrival: Stretcher Limitations: No Limitations - History of Present Illness Initial Comments: Patient presents by ambulance secondary to seizure. Patient has autism. History is obtained from the patient, EMS, and from the mother who is at the bedside. Patient had a shaking episode today described by the mother as a seizure. This is the same type of shaking she has had before with seizures. She is on Keppra. She does have a history of seizures. EMS had reported, and the mother reported, that the patient did not have a history of seizures. Based on review of old records, she does. There was no recent head trauma. There have been no recent fevers. There have been no recent vomiting. There was no diarrhea. Patient did not have any specific complaints. She stated that she felt weak when she tried to get up and walk to the bathroom here. Liz [id number] [phone] Agus Gómez-son [phone] - Related Data Previous Rx's Medication Instructions Recorded Last Taken Type Salicylic Acid/Ceramide Comb 1 1 applic TP BID #1 kit.clcmer 01/16/17 Unknown Rx [Salicylic Acid 6% Cream Kit] Tobramycin 0.3% [Tobrex] 1 drop OD QID 7 Days bottle 04/12/17 Unknown Rx Cetirizine HCl [ZyrTEC] 10 mg PO QDAY 21 Days #21 05/23/18 Unknown Rx tab.rapdis Fluticasone [Flonase] 1 spray NS QDAY 14 Days #1 bottle 05/23/18 Unknown Rx levETIRAcetam [Keppra TAB] 500 mg PO BID #30 tablet 05/23/18 Unknown Rx Acetaminophen/Codeine [Tylenol 1 tab PO Q6H PRN #12 tab 08/10/18 Unknown Rx /Codeine # 3 tab] Sulfamethoxazole/Trimethoprim 1 each PO BID #14 tablet 08/10/18 Unknown Rx [Bactrim DS TAB] Ondansetron [Zofran Odt] 4 mg PO Q8HR PRN #20 tab.rapdis 11/02/18 Unknown Rx Ibuprofen [Motrin] 600 mg PO Q8H PRN #30 tablet 01/01/19 Unknown Rx Ketorolac [Toradol] 10 mg PO Q6H PRN #15 tablet 01/23/19 Unknown Rx methOCARBAMOL [Robaxin TAB] 750 mg PO Q8H PRN #14 tablet 01/23/19 Unknown Rx Ibuprofen [Motrin 800 MG tab] 800 mg PO Q8HR PRN #15 tablet 07/18/19 Unknown Rx levETIRAcetam [Keppra TAB] 500 mg PO BID #60 tablet 08/18/21 Unknown Rx levoFLOXacin [Levaquin TAB] 500 mg PO QDAY #7 tablet 08/18/21 Unknown Rx Allergies Allergy/AdvReac Type Severity Reaction Status Date / Time No Known Allergies Allergy Verified 11/02/18 15:23 ED Review of Systems ROS: Stated complaint: SZ Other details as noted in HPI Comment: All other systems reviewed and negative Constitutional: denies: fever Eyes: denies: vision change ENT: denies: throat pain Respiratory: denies: cough Cardiovascular: denies: chest pain Endocrine: denies: unexplained weight loss Gastrointestinal: denies: abdominal pain Genitourinary: denies: dysuria Musculoskeletal: denies: back pain Skin: denies: rash Neurological: denies: headache Hematological/Lymphatic: denies: easy bruising ED Past Medical Hx - Past Medical History Hx Seizures: Yes Additional medical history: Autism - Surgical History Additional Surgical History: back - Family History Family history: no significant - Social History Smoking Status: Never Smoker Substance Use Type: None (Denies illicit drug use) - Medications Home Medications: Home Medications Medication Instructions Recorded Confirmed Last Taken Type Salicylic Acid/Ceramide Comb 1 1 applic TP BID #1 kit.clcmer 01/16/17 Unknown Rx [Salicylic Acid 6% Cream Kit] Tobramycin 0.3% [Tobrex] 1 drop OD QID 7 Days bottle 04/12/17 Unknown Rx Cetirizine HCl [ZyrTEC] 10 mg PO QDAY 21 Days #21 05/23/18 Unknown Rx tab.rapdis Fluticasone [Flonase] 1 spray NS QDAY 14 Days #1 bottle 05/23/18 Unknown Rx levETIRAcetam [Keppra TAB] 500 mg PO BID #30 tablet 05/23/18 Unknown Rx Acetaminophen/Codeine [Tylenol 1 tab PO Q6H PRN #12 tab 08/10/18 Unknown Rx /Codeine # 3 tab] Sulfamethoxazole/Trimethoprim 1 each PO BID #14 tablet 08/10/18 Unknown Rx [Bactrim DS TAB] Ondansetron [Zofran Odt] 4 mg PO Q8HR PRN #20 tab.rapdis 11/02/18 Unknown Rx Ibuprofen [Motrin] 600 mg PO Q8H PRN #30 tablet 01/01/19 Unknown Rx Ketorolac [Toradol] 10 mg PO Q6H PRN #15 tablet 01/23/19 Unknown Rx methOCARBAMOL [Robaxin TAB] 750 mg PO Q8H PRN #14 tablet 01/23/19 Unknown Rx Ibuprofen [Motrin 800 MG tab] 800 mg PO Q8HR PRN #15 tablet 07/18/19 Unknown Rx levETIRAcetam [Keppra TAB] 500 mg PO BID #60 tablet 08/18/21 Unknown Rx levoFLOXacin [Levaquin TAB] 500 mg PO QDAY #7 tablet 08/18/21 Unknown Rx ED Physical Exam - General Limitations: No Limitations, Altered Mental Status ( Chronic autism), Other ( pulse ox noted and normal) General appearance: alert, in no apparent distress - Head Head exam: Present: atraumatic, normocephalic, normal inspection - Eye Eye exam: Present: normal appearance, EOMI. Absent: scleral icterus - ENT ENT exam: Present: normal exam, normal orophraynx, normal external ear exam - Neck Neck exam: Present: normal inspection. Absent: meningismus - Respiratory Respiratory exam: Present: normal lung sounds bilaterally. Absent: respiratory distress - Cardiovascular Cardiovascular Exam: Present: regular rate, normal rhythm - GI/Abdominal GI/Abdominal exam: Present: soft. Absent: tenderness - Extremities Exam Extremities exam: Present: normal capillary refill. Absent: calf tenderness - Back Exam Back exam: Absent: CVA tenderness (R), CVA tenderness (L) - Neurological Exam Neurological exam: Present: alert, CN II-XII intact, other ( generalized weakness is noted. There is no focality). Absent: reflexes normal - Psychiatric Psychiatric exam: Present: normal affect, normal mood, other ( at baseline per mother) - Skin Skin exam: Present: warm, dry ED Course Vital Signs 08/20/21 13:27 Temperature 98.0 F Pulse Rate 104 H Respiratory 16 Rate Blood Pressure 117/77 [Right] O2 Sat by Pulse 98 Oximetry - Reevaluation(s) Reevaluation #1: 08/20/21 13:44 EMS was met and labs were ordered. Old records reviewed Reevaluation #2: 08/20/21 15:15 CT reviewed and decadron ordered. CT reading pending. Reevaluation #3: 08/20/21 15:[address] p[address] reading was noted. Likely, this patient will r equire transfer. Reevaluation #4: 08/20/21 16:13 POA was notified by phone. We are attempting placement and transfer. [facility] is not excepting patients. [facility] is determining whether they have capacity. Reevaluation #5: 08/20/21 16:30 Case was discussed with Dr. Cano at [facility]. She is the neurosurgeon dealer relationship manager and will accept the patient. Family has requested that the mother, who has some degree of developmental delay and codependency with the patient be allowed to stay with the patient. That is up to the receiving facility. ED Medical Decision Making - Lab Data Result diagrams: 08/20/21 13:47 08/20/21 13:47 - Radiology Data Radiology results: report reviewed - Medical Decision Making Patient presented with a recurrent seizure. She was found to have a brain mass on CT. She did have some right leg weakness. Patient has been given Decadron. She has been transferred for ongoing treatment and evaluation. We do not have the technical capability or resources to care for the patient here with the presumption that this is likely a primary brain cancer. There was no evidence of bleed based on radiology report. Labs from 2 days ago were reviewed. It was not felt that they needed to be repeated. Critical Care Time: No Critical care attestation.: If time is entered above; I have spent that time in minutes in the direct care of this critically ill patient, excluding procedure time. ED Disposition Clinical Impression: Breakthrough seizure, Brain mass Disposition: [facility] Is pt being admited?: No Condition: Stable Referrals: PRIMARY CARE, [Primary Care Provider] - 3-5 Days
[2021-08-20 14:15] LABS: Mean Corpuscular HGB Conc 29 % (30-34); Platelet Count 330 K/mm3 (140-440); Red Blood Count 4.69 M/mm3 (3.65-5.03)
[2021-08-20 14:34] LABS: Blood Urea Nitrogen 8 mg/dL (7-17); Calcium 9.2 mg/dL (8.4-10.2); Hemolysis Index 2
[2021-08-20 14:35] LABS: BUN/Creatinine Ratio 11
[2021-08-20 14:37] LABS: Hematocrit 28.5 % (30.3-42.9); Hemoglobin 8.3 gm/dl (10.1-14.3); Mean Corpuscular Volume 61 fl (79-97); Red Cell Distribution Width 20.1 % (13.2-15.2)
[2021-08-20] MEDS ORDERED: dexAMETHasone 20 MG/5 ML VIAL IV ONE (14:52)
--- NOTE | 2021-08-20 15:26 | Cat Scan Report ---
CT HEAD WITHOUT CONTRAST INDICATION / CLINICAL INFORMATION: Recurrent seizure(s). TECHNIQUE: All CT scans at this location are performed using CT dose reduction for ALARA by means of automated e xposure control. COMPARISON: None available. FINDINGS: HEMORRHAGE: Small foci of increased attenuation in the left frontal lobe. Represent calcification. No definite evidence of intracranial hemorrhage is observed. EXTRA-AXIAL SPACES: Mass effect results in effacement of cortical sulci along the anterior medial asp ect of the left frontal lobe. Elsewhere, cortical sulci have an unremarkable appearance. VENTRICULAR SYSTEM: Mass effect in the left frontal lobe results in compression of the frontal horn o f the left lateral ventricle. Incidental note is made of persistence of the septum pellucidum and cav um vergae. CEREBRAL PARENCHYMA: Heterogeneous decreased attenuation is seen in the anterior pole of the left fro ntal lobe extending into the rostrum of the corpus callosum. There is associated mass effect as descr ibed above. Possibility of a primary brain neoplasm is considered likely. Further evaluation to inclu de MRI brain without and with intravenous contrast is advised. MIDLINE SHIFT OR HERNIATION: There is no mass effect. CEREBELLUM / BRAINSTEM: Brainstem and cerebellum have an unremarkable appearance. MIDLINE STRUCTURES:No abnormalities of the pituitary gland or pineal region are identified. INTRACRANIAL VESSELS:No abnormalities are identified on this noncontrast head CT. ORBITS: visualized portions of the orbits have an unremarkable appearance. SOFT TISSUES of HEAD: No significant abnormality. CALVARIUM: Evaluation of bone windows reveals no abnormalities. PARANASAL SINUSES / MASTOID AIR CELLS: Visualized portions of the paranasal sinuses are free from inf lammatory mucosal disease. Mastoid air cells are normally pneumatized. IMPRESSION: 1. 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 Follow-up to include MRI of brain without and with intravenous contrast material is advised. Signer Name: Jakob Vazquez MD Signed: 08/20/2021 3:22 PM Workstation Name: [id number][id number]
[2021-08-20 17:14] VITALS: BP 130/79
== END 2021-08-20 23:00 | disposition designated cancer center or children's hospital (05) ==
LOC: ED 13:16
DX: G40.909 Epilepsy, unspecified, not intractable, without status epilepticus (principal); G93.89 Other specified disorders of brain; F84.0 Autistic disorder
CPT/HCPCS: 36415; 70450; 80048; 80177; 85027; 99285

== ENCOUNTER 2021-11-14 12:38 | Emergency (ER) | payer MEDICAID ==
--- NOTE | 2021-11-14 13:24 | Emergency Department Report ---
ED Recheck HPI - General Chief Complaint: Medical Clearance Stated Complaint: MED REFILL Time Seen by Provider: 11/14/21 13:22 Source: patient Mode of arrival: Ambulatory Limitations: No Limitations - History of Present Illness Initial Comments: 31 yo comes to ER with her mother- needs keppra refill. No sz. Ran out of meds. Known to us in ER. No new symptoms. Complaint: medication refill request -: Gradual Symptoms Since Prior Visit: no new symptoms Associated Symptoms: none - Related Data Previous Rx's Medication Instructions Recorded Last Taken Type levETIRAcetam [Keppra TAB] 500 mg PO BID #60 tablet 11/14/21 Unknown Rx Allergies Allergy/AdvReac Type Severity Reaction Status Date / Time No Known Allergies Allergy Verified 11/14/21 12:45 ED Review of Systems ROS: Stated complaint: MED REFILL Other details as noted in HPI Comment: All other systems reviewed and negative ED Past Medical Hx - Past Medical History Previous Medical History?: Yes Hx Seizures: Yes Additional medical history: Autism - Surgical History Past Surgical History?: Yes Additional Surgical History: back - Family History Family history: no significant - Social History Smoking Status: Never Smoker Substance Use Type: None (Denies illicit drug use) - Medications Home Medications: Home Medications Medication Instructions Recorded Confirmed Last Taken Type levETIRAcetam [Keppra TAB] 500 mg PO BID #60 tablet 11/14/21 Unknown Rx ED Physical Exam - General Limitations: No Limitations General appearance: alert, in no apparent distress - Head Head exam: Present: atraumatic, normocephalic - Eye Eye exam: Present: normal appearance - ENT ENT exam: Present: mucous membranes moist - Neck Neck exam: Present: normal inspection - Respiratory Respiratory exam: Present: normal lung sounds bilaterally. Absent: respiratory distress - Cardiovascular Cardiovascular Exam: Present: regular rate, normal rhythm. Absent: systolic murmur, diastolic murmur, rubs, gallop - GI/Abdominal GI/Abdominal exam: Present: soft, normal bowel sounds - Extremities Exam Extremities exam: Present: normal inspection - Back Exam Back exam: Present: normal inspection - Neurological Exam Neurological exam: Present: alert, oriented X3 - Psychiatric Psychiatric exam: Present: normal affect, normal mood - Skin Skin exam: Present: warm, dry, intact, normal color. Absent: rash ED Course Vital Signs 11/14/21 12:43 Temperature 98 F Pulse Rate 78 Respiratory 14 Rate Blood Pressure 115/79 [Left] O2 Sat by Pulse 100 Oximetry ED Recheck MDM - Differential Diagnosis Prescription Refill(s) - Medical Decision Making simple med refill no sz or new symptom Vital Signs 11/14/21 12:43 Temperature 98 F Pulse Rate 78 Respiratory 14 Rate Blood Pressure 115/79 [Left] O2 Sat by Pulse 100 Oximetry Critical care attestation.: If time is entered above; I have spent that time in minutes in the direct care of this critically ill patient, excluding procedure time. ED Disposition Clinical Impression: Medication refill Disposition: HOME / SELF CARE / HOMELESS Is pt being admited?: No Does the pt Need Aspirin: No Condition: Stable Additional Instructions: see pcp for future med refills referral below Prescriptions: levETIRAcetam [Keppra TAB] 500 mg PO BID #60 tablet Referrals: RAGINI MAURER MD [Staff Physician] - 3-5 Days Time of Disposition: 13:24
[2021-11-14 13:47] VITALS: BP 108/61
== END 2021-11-14 14:52 | disposition home or self-care (01) ==
LOC: ED 12:38
DX: R56.9 Unspecified convulsions (principal); Z76.0 Encounter for issue of repeat prescription; Z79.899 Other long term (current) drug therapy; Z98.890 Other specified postprocedural states
CPT/HCPCS: 99282

== ENCOUNTER 2021-11-14 13:14 | Emergency (ER) | payer MEDICAID | END 2021-11-15 18:54 | disposition left against medical advice (07) | LOC: ED 13:14 | DX: Z76.0 Encounter for issue of repeat prescription (principal); Z53.21 Procedure and treatment not carried out due to patient leaving prior to being seen by health care provider ==

== ENCOUNTER 2022-01-10 15:56 | Emergency (ER) | payer MEDICAID ==
[2022-01-10] MEDS ORDERED: levETIRAcetam 1000 MG/NS 0.75% 1,000 MG/100 ML BAG IV ONE (16:34)
--- NOTE | 2022-01-10 16:41 | Emergency Department Report ---
ED Seizure HPI - General Chief Complaint: Seizure Stated Complaint: seizure Time Seen by Provider: 01/10/22 16:08 Source: EMS, old records reviewed Mode of arrival: Ambulatory Limitations: Other (Autism) - History of Present Illness Initial Comments: 31-year-old female with a past medical history of autism and brain mass diagnosed August 2021 presents to the hospital after having multiple seizures yesterday and today. Mother and daughter are very poor historians. Initially she was requesting increased dose of Keppra since she continues to have seizures despite compliance. 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 Patient was subsequently transferred to [place] for treatment. Dr. Cano was the neurosurgeon at [place] that excepted the patient for transfer. Upon confrontation with mom about this she is hesitant to discuss the case in front of the daughter and has not informed her of her possible brain mass because she does not want to upset her. They have also not followed up since their initial transfer to [place] and instead she has been coming to the ER for seizure medication refills. Mother states she is also been praying about it hoping that it would get better on its own. Daughter states that she felt weak earlier but now is at baseline mental status. She also complains of intermittent headaches but denies headache at this time. Patient is currently taking Keppra 500 mg twice daily and has been compliant Patient's mother is not the power of workers compensation defense attorney. healthcare power of workers compensation defense attorney is Liz Rizzo phone number [phone]. - Related Data Previous Rx's Medication Instructions Recorded Last Taken Type levETIRAcetam [Keppra TAB] 500 mg PO BID #60 tablet 11/14/21 Unknown Rx Allergies Allergy/AdvReac Type Severity Reaction Status Date / Time No Known Allergies Allergy Verified 01/10/22 16:00 ED Review of Systems ROS: Stated complaint: seizure Other details as noted in HPI Comment: All other systems reviewed and negative ED Past Medical Hx - Past Medical History Previous Medical History?: Yes Hx Seizures: Yes Additional medical history: Left autism. 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 - Surgical History Additional Surgical History: back - Social History Smoking Status: Never Smoker Substance Use Type: None (Denies illicit drug use) - Medications Home Medications: Home Medications Medication Instructions Recorded Confirmed Last Taken Type levETIRAcetam [Keppra TAB] 500 mg PO BID #60 tablet 11/14/21 Unknown Rx ED Physical Exam - General Limitations: No Limitations - Other Other exam information: General: No acute distress Head: Atraumatic Eyes: normal appearance, extraocular movement intact, lateral visual youssef intact ENT: Moist mucous membranes Neck: Normal appearance, no midline tenderness Chest: Clear to auscultation bilaterally CV: Regular rate and rhythm Abdomen: Soft, normal bowel sounds, nontender, nondistended, no rebound or guarding Back: Normal inspection Extremity: Normal inspection, full range of motion Neuro: Alert O x 3, no facial asymmetry, speech clear, no gross motor sensory deficit, [id number] function intact, gait steady Psych: Appropriate behavior Skin: No rash ED Course Vital Signs 01/10/22 15:57 Temperature 98.4 F Pulse Rate 98 H Respiratory 16 Rate Blood Pressure 118/76 [Left] O2 Sat by Pulse 99 Oximetry - Reevaluation(s) Reevaluation #1: 01/10/22 20:21 At this time I spoke to the [id number]-sba who apparently is the power of workers compensation defense attorney over the patient (the mother is not). Her name is Liz Rizzo phone number [phone]. She states she is aware that patient has a brain tumor. She follows with [place] however, has missed several appointments including her appointment for biopsy. She is not currently receiving any treatment for her possible brain mass/cancer. She cannot recall the name the patient's neurosurgeon - Consultations Consultation #1: 01/10/22 19:01 case d/w [place] transfer service, awaiting Neurosurgeon call back 01/10/22 20:36 Case was discussed with Dr. Danielle neurosurgeon at [place] who was accepted patient for inpatient admission. Agrees with Keppra IV does not recommend steroids or mannitol at this time ED Medical Decision Making - Lab Data Result diagrams: 01/10/22 16:42 01/10/22 16:42 Lab Results 01/10/22 01/10/22 01/10/22 Range/Units 16:42 16:42 16:42 WBC 6.7 (4.5-11.0) K/mm3 RBC 4.69 (3.65-5.03) M/mm3 Hgb 8.5 L (10.1-14.3) gm/dl Hct 28.0 L (30.3-42.9) % MCV 60 L (79-97) fl MCH 18 L (28-32) pg MCHC 30 (30-34) % RDW 20.6 H (13.2-15.2) % Plt Count 463 H (140-440) K/mm3 Lymph % (Auto) 23.2 (13.4-35.0) % [place] % (Auto) 10.8 H (0.0-7.3) % Eos % (Auto) 2.2 (0.0-4.3) % Baso % (Auto) 0.9 (0.0-1.8) % Lymph # (Auto) 1.6 (1.2-5.4) K/mm3 [place] # (Auto) 0.7 (0.0-0.8) K/mm3 Eos # (Auto) 0.1 (0.0-0.4) K/mm3 Baso # (Auto) 0.1 (0.0-0.1) K/mm3 Seg Neutrophils % 62.9 (40.0-70.0) % Seg Neutrophils # 4.2 (1.8-7.7) K/mm3 Sodium 136 L (137-145) mmol/L Potassium 4.1 (3.6-5.0) mmol/L Chloride 102.7 (98-107) mmol/L Carbon Dioxide 22 (22-30) mmol/L Anion Gap 15 mmol/L BUN 9 (7-17) mg/dL Creatinine 0.8 (0.6-1.2) mg/dL Estimated GFR > 60 ml/min BUN/Creatinine Ratio 11 % Glucose 93 (65-100) mg/dL Calcium 9.4 (8.4-10.2) mg/dL Magnesium 2.00 (1.7-2.3) mg/dL HCG, Quant < 2 (0-4) mIU/mL - Radiology Data Radiology results: report reviewed CT HEAD WITHOUT CONTRAST INDICATION / CLINICAL INFORMATION: history of brain mass, increasing seizures. TECHNIQUE: All CT scans at this location are performed using CT dose reduction for ALARA by means of automated exposure control. COMPARISON: Head CT 08/20/2021 FINDINGS: Again demonstrated is a large infiltrating mass lesion involving much of the left frontal lobe. Decreased attenuation extends into the rostrum of the corpus callosum likely ref lecting tumor ext ension into this location. This is more pronounced than on previous study. Calcifications are seen within the lesion. Findings are most consistent with primary brain neoplasm. Mass effect has increased since prior study. There is increased compression of the frontal horn and anterior body of the left lateral ventricle. Third ventricle is largely effaced. Effacement of the previously identified cavum septum pellucidum is noted. Interval increase in size of the body, atria and occipital horn of the right lateral ventricle and increase in size of the atria and occipital horn of the left lateral ventricle is noted. This may indicate developing hydrocephalus. Basilar cisterns are fairly well-maintained. Brainstem and cerebellum have an unremarkable appearance. Evaluation of bone windows reveals no abnormality. Paranasal sinuses and mastoid air cells are free from inflammatory disease. Evaluation of the orbits reveals no abnormality. IMPRESSION: 1. Interval increase in mass effect associated with a large infiltrating left frontal lobe neoplasm. 2. Interval increase in the size of the atria and occipital horns of lateral ventricles may indicate that the ventricular system is trapped. These are signs of developing hydrocephalus. - Medical Decision Making 31-year-old female presents to the hospital requesting increasing seizure medication due to persistent seizures. Patient as she has worsening i frontal brain mass which is likely cancerous and requires transfer to [place]. Patient has been accepted by neurosurgery. Patient was loaded with IV Keppra and is nonfocal on exam without any seizures during ED stay - Differential Diagnosis Seizure, brain mass Critical Care Time: Yes Critical care time in (mins) excluding proc time.: 40 Critical care attestation.: If time is entered above; I have spent that time in minutes in the direct care of this critically ill patient, excluding procedure time. Critical Care Time: 40 Minutes of critical care time excluding procedures were used in the care of the patient. I came immediately to the bedside upon patient's arrival. I obtained history from EMS at the bedside. I discussed treatment plan with the nursing team members. I reviewed electronic record. I spoke with family to obtain medical history. Coordinated transfer and admission to [place] neurosurgery for further treatment and continuity of care ED Disposition Clinical Impression: Brain mass, Seizures, Hydrocephalus, Autism Disposition: 02 SHORT TERM HOSPITAL Is pt being admited?: No Condition: Stable Time of Disposition: 21:31 (awaiting transport)
[2022-01-10 17:04] LABS: Basophils # (Auto) 0.1 K/mm3 (0.0-0.1); Basophils % (Auto) 0.9 % (0.0-1.8); Eosinophils # (Auto) 0.1 K/mm3 (0.0-0.4); Eosinophils % (Auto) 2.2 % (0.0-4.3); Hemoglobin 8.5 gm/dl (10.1-14.3); Lymphocytes # (Auto) 1.6 K/mm3 (1.2-5.4); Lymphocytes % (Auto) 23.2 % (13.4-35.0); Mean Corpuscular HGB Conc 30 % (30-34); Monocytes # (Auto) 0.7 K/mm3 (0.0-0.8); Monocytes % (Auto) 10.8 % (0.0-7.3); Platelet Count 463 K/mm3 (140-440); Red Blood Count 4.69 M/mm3 (3.65-5.03)
[2022-01-10 17:24] LABS: BUN/Creatinine Ratio 11; Blood Urea Nitrogen 9 mg/dL (7-17); Calcium 9.4 mg/dL (8.4-10.2); Hemolysis Index 14
[2022-01-10 17:31] LABS: Mean Corpuscular Volume 60 fl (79-97); Red Cell Distribution Width 20.6 % (13.2-15.2)
--- NOTE | 2022-01-10 18:36 | Cat Scan Report ---
CT HEAD WITHOUT CONTRAST INDICATION / CLINICAL INFORMATION: history of brain mass, increasing seizures. TECHNIQUE: All CT scans at this location are performed using CT dose reduction for ALARA by means of automated e xposure control. COMPARISON: Head CT 08/20/2021 FINDINGS: Again demonstrated is a large infiltrating mass lesion involving much of the left frontal lobe. Decre ased attenuation extends into the rostrum of the corpus callosum likely reflecting tumor extension in to this location. This is more pronounced than on previous study. Calcifications are seen within the lesion. Findings are most consistent with primary brain neoplasm. Mass effect has increased since zahida or study. There is increased compression of the frontal horn and anterior body of the left lateral ve ntricle. Third ventricle is largely effaced. Effacement of the previously identified cavum septum pel lucidum is noted. Interval increase in size of the body, atria and occipital horn of the right latera l ventricle and increase in size of the atria and occipital horn of the left lateral ventricle is not ed. This may indicate developing hydrocephalus. Basilar cisterns are fairly well-maintained. Brainstem and cerebellum have an unremarkable appearance. Evaluation of bone windows reveals no abnormality. Paranasal sinuses and mastoid air cells are free from inflammatory disease. Evaluation of the orbits reveals no abnormality. IMPRESSION: 1. Interval increase in mass effect associated with a large infiltrating left frontal lobe neoplasm. 2. Interval increase in the size of the atria and occipital horns of lateral ventricles may indicate that the ventricular system is trapped. These are signs of developing hydrocephalus. Signer Name: Jakob Vazquez MD Signed: 01/10/2022 6:31 PM Workstation Name: [id number]
[2022-01-11] MEDS ORDERED: LORazepam 2 MG/ML VIAL IV ONE ×2 (00:19→11:07)
[2022-01-11] MEDS ORDERED: LORazepam 2 MG/ML VIAL ONE (11:00)
[2022-01-11] MEDS: levETIRAcetam 500 MG TAB PO SCH ×2 (11:06→20:28)
[2022-01-11] MEDS ORDERED: levETIRAcetam 1000 MG/NS 0.75% 1,000 MG/100 ML BAG IV ONE ×2 (11:07→20:07)
[2022-01-11] MEDS ORDERED: dexAMETHasone 20 MG/5 ML VIAL IV ONE (20:00)
[2022-01-11] MEDS ORDERED: levETIRAcetam 500 MG in DEXTROSE 5% IN WATER 100 ML IV ONE (20:09)
[2022-01-12] MEDS: dexAMETHasone 4 MG/ML VIAL IV SCH ×2 (05:34→07:44)
[2022-01-12] MEDS: levETIRAcetam 500 MG TAB PO SCH (07:43)
[2022-01-12] MEDS ORDERED: levETIRAcetam 500 MG TAB PO ONE (08:15)
[2022-01-12 08:42] VITALS: BP 101/56
== END 2022-01-12 08:42 | disposition short-term general hospital (02) ==
LOC: ED 15:56
DX: G93.89 Other specified disorders of brain (principal); G40.909 Epilepsy, unspecified, not intractable, without status epilepticus; G91.9 Hydrocephalus, unspecified; F84.0 Autistic disorder
CPT/HCPCS: 36415; 70450; 80048; 82962; 83735; 84702; 85025; 96365; 96375; 96376; 99291; J1100; J1953; J2060; J7060; 99285

== ENCOUNTER 2022-01-15 08:41 | Emergency (ER) | payer MEDICAID ==
[2022-01-15] MEDS ORDERED: LORazepam 2 MG/ML VIAL ONE ×2 (08:42→09:25)
[2022-01-15] MEDS ORDERED: SODIUM CHLORIDE 0.9% 1000 ML 1,000 ML IV ONE (08:57)
[2022-01-15] MEDS ORDERED: levETIRAcetam 1000 MG/NS 0.75% 1,000 MG/100 ML BAG IV ONE (09:29)
--- NOTE | 2022-01-15 10:49 | XRay Report ---
CHEST 1 VIEW INDICATION / CLINICAL INFORMATION: seizure. COMPARISON: None available. FINDINGS: SUPPORT DEVICES: None. HEART / MEDIASTINUM: No significant abnormality. LUNGS / PLEURA: No significant pulmonary or pleural abnormality. No pneumothorax. ADDITIONAL FINDINGS: No significant additional findings. IMPRESSION: 1. No acute findings. Signer Name: Blake Simeon MD Signed: 01/15/2022 10:44 AM Workstation Name: [id number]
--- NOTE | 2022-01-15 11:01 | Emergency Department Report ---
ED Seizure HPI - General Chief Complaint: Seizure Stated Complaint: SEIZURE Time Seen by Provider: 01/15/22 08:57 Source: EMS Mode of arrival: Stretcher Limitations: Altered Mental Status - History of Present Illness MD Complaint: seizure -: Sudden, days(s) Description of Episode: loss of consciousness, tonic-clonic movement -: second(s) Witnessed:: Yes Trauma: No Seizure History: known seizure disorder, history of non-compliance Possible Precipitating Event: other (brain mass) Associated Symptoms: confusion. denies: denies other symptoms, chest pain, loss of appetite, malaise, rash - Related Data Previous Rx's Medication Instructions Recorded Last Taken Type levETIRAcetam [Keppra TAB] 500 mg PO BID #60 tablet 11/14/21 Unknown Rx dexAMETHasone [Decadron] 4 mg PO Q8H 10 Days #30 tablet 01/12/22 Unknown Rx levETIRAcetam [Keppra TAB] 1,500 mg PO BID #60 01/12/22 Unknown Rx Allergies Allergy/AdvReac Type Severity Reaction Status Date / Time No Known Allergies Allergy Verified 01/10/22 16:00 ED Review of Systems ROS: Stated complaint: SEIZURE Other details as noted in HPI Constitutional: denies: chills, fever Eyes: denies: eye pain, eye discharge, vision change ENT: denies: ear pain, throat pain Respiratory: denies: cough, shortness of breath, wheezing Cardiovascular: denies: chest pain, palpitations Endocrine: no symptoms reported Gastrointestinal: denies: abdominal pain, nausea, diarrhea Genitourinary: denies: urgency, dysuria, discharge Musculoskeletal: denies: back pain, joint swelling, arthralgia Skin: denies: rash, lesions Neurological: denies: headache, weakness, paresthesias Psychiatric: denies: anxiety, depression Hematological/Lymphatic: denies: easy bleeding, easy bruising ED Past Medical Hx - Past Medical History Previous Medical History?: No Hx Hypertension: No Hx of Cancer: Yes Hx Seizures: Yes Additional medical history: Left autism. 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 - Surgical History Additional Surgical History: back - Social History Smoking Status: Never Smoker Substance Use Type: None (Denies illicit drug use) - Medications Home Medications: Home Medications Medication Instructions Recorded Confirmed Last Taken Type levETIRAcetam [Keppra TAB] 500 mg PO BID #60 tablet 11/14/21 Unknown Rx dexAMETHasone [Decadron] 4 mg PO Q8H 10 Days #30 tablet 01/12/22 Unknown Rx levETIRAcetam [Keppra TAB] 1,500 mg PO BID #60 01/12/22 Unknown Rx ED Physical Exam - General Limitations: Altered Mental Status General appearance: alert, postictal - Head Head exam: Present: atraumatic, normocephalic - Eye Eye exam: Present: normal appearance - ENT ENT exam: Present: mucous membranes moist - Neck Neck exam: Present: normal inspection - Respiratory Respiratory exam: Present: normal lung sounds bilaterally. Absent: respiratory distress - Cardiovascular Cardiovascular Exam: Present: regular rate, normal rhythm. Absent: systolic murmur, diastolic murmur, rubs, gallop - GI/Abdominal GI/Abdominal exam: Present: soft, normal bowel sounds - Extremities Exam Extremities exam: Present: normal inspection - Back Exam Back exam: Present: normal inspection - Neurological Exam Neurological exam: Present: other (awake confuse ) - Psychiatric Psychiatric exam: Present: normal affect, normal mood - Skin Skin exam: Present: warm, dry, intact, normal color. Absent: rash ED Course Vital Signs 01/15/22 08:43 Temperature 98.7 F Pulse Rate 67 Respiratory 16 Rate Blood Pressure 126/74 [Left] O2 Sat by Pulse 95 Oximetry ED Medical Decision Making - Radiology Data Radiology results: report reviewed, image reviewed - Medical Decision Making pt has 2 seizures while in ER , ativan IM given then loaded with keppra, spoke with dr Cano , Neurosurgeon over [place] , suggested we speack to her Power of inspector boiler regarding pt approval for surgery,. had a conference call with mother , sister in [facility] while and brother who agreed to do surgery, spoke with harvey again and Dr Cano accepted transfer Critical care attestation.: If time is entered above; I have spent that time in minutes in the direct care of this critically ill patient, excluding procedure time. ED Disposition Clinical Impression: Seizure, Seizures, Brain mass, Hydrocephalus Disposition: 51 HOSPICE/MEDICAL FACILITY Is pt being admited?: No Does the pt Need Aspirin: No Condition: Fair Referrals: PRIMARY CARE,MD [Primary Care Provider] - 3-5 Days
[2022-01-15 11:22] VITALS: BP 122/77
[2022-01-15 11:28] LABS: Alanine Aminotransferase 33 units/L (7-56); Albumin 3.9 g/dL (3.9-5); Blood Urea Nitrogen 12 mg/dL (7-17); Calcium 9.1 mg/dL (8.4-10.2); Hemolysis Index 129
[2022-01-15] MEDS ORDERED: LORazepam 2 MG/ML VIAL IV ONE ×2 (11:40→11:41)
[2022-01-15 11:45] LABS: BUN/Creatinine Ratio 20
== END 2022-01-15 11:45 | disposition hospice, inpatient (51) ==
LOC: ED 08:41
DX: G40.909 Epilepsy, unspecified, not intractable, without status epilepticus (principal); G91.9 Hydrocephalus, unspecified; G93.89 Other specified disorders of brain
CPT/HCPCS: 36415; 71045; 80053; 85025; 96374; 96375; 99285; J1953; J2060; J7030; Q0162